=== PATIENT | female | born 1950 | race Caucasian/White ===

== ENCOUNTER 2019-09-13 15:47 | Outpatient (CLI) | payer MEDICARE, SELFPAY ==
--- NOTE | ~2019-09-13 | XR_ITS ---
XR foot LT 2V 09/13/2019 16:45 Indication: Left foot pain Procedure: 2 views left foot Comparison: No prior studies for comparison. Findings: No fracture or traumatic malalignment. Mild osteoarthritis of the first MTP joint. Small de generative calcaneal enthesophyte. Impression: 1: Mild osteoarthritis of the first MTP joint. Reviewed, dictated and finalized at location A. Impression: 1: Mild osteoarthritis of the first MTP joint.
--- NOTE | ~2019-09-13 | XR_ITS ---
XR hand LT 2V 09/13/2019 16:46 Indication: Left hand pain Procedure: 3 views left hand Comparison: No prior studies for comparison. Findings: There is moderate polyarticular osteoarthritis. Osteopenia. No fracture, subluxation or dis location. No erosive changes. No focal soft tissue abnormalities. Impression: 1: Moderate polyarticular osteoarthritis of the left hand. Reviewed, dictated and finalized at location A. Impression: 1: Moderate polyarticular osteoarthritis of the left hand.
[2019-09-13 17:19] LABS: Alanine Aminotransferase 27 U/L (14-59); Albumin Level 3.7 g/dL (3.4-5.0); Alkaline Phosphatase 90 U/L (46-116); Anion Gap 10.4 mmol/L (7-16); Aspartate Amino Transferase 17 U/L (15-37); Bilirubin,Total 0.2 mg/dL (0.00-1.00); Blood Urea Nitrogen 18 mg/dL (7-18); Carbon Dioxide 31 mmol/L (21-32); Chloride 105 mmol/L (98-108); Cholesterol 189 mg/dL (0-200); Estimated Glomerular Filt Rate > 60; Free T4 Free Thyroxine 1.39 ng/dL (0.76-1.46); Glucose 102 mg/dL (70-99); HDL Direct 46 mg/dL (40-60); LDL Cholesterol Calculated 107 mg/dL (<130); Osmolality Calculated 295 mOsm/kg (285-295); Potassium 4.4 mmol/L (3.5-5.1); Sodium 142 mmol/L (136-145); Total Protein 7.2 g/dL (6.4-8.2); Triglycerides 178 mg/dL (0-150)
== END 2019-09-13 15:48 | disposition home or self-care (01) ==
PROVIDERS: PCP Nurse Practitioner Family; Visit Provider Nurse Practitioner Family
DX: E03.9 Hypothyroidism, unspecified (principal); M79.672 Pain in left foot; M79.642 Pain in left hand; Z00.00 Encounter for general adult medical examination without abnormal findings
CPT/HCPCS: 36415; 73120; 73620; 80053; 80061; 84439; 84443

== ENCOUNTER 2019-10-01 14:44 | Outpatient (CLI) | payer MEDICARE, SELFPAY ==
[2019-10-02 00:47] LABS: SARS-CoV-2 RNA PCR Positive
== END 2019-10-01 14:45 | disposition home or self-care (01) ==
LOC: CHSLAB 14:46
PROVIDERS: PCP Family Medicine; Visit Provider Family Medicine
DX: U07.1 COVID-19 (principal); J02.9 Acute pharyngitis, unspecified; R05 Cough; R52 Pain, unspecified; R68.89 Other general symptoms and signs
CPT/HCPCS: 87635; C9803; U0003

== ENCOUNTER 2019-10-09 01:53 | Inpatient (IN) | payer MEDICARE, SELFPAY ==
[2019-10-09] VITALS (10 sets, daily range): BP systolic 122–148; BP diastolic 60–86; PULSE 66–92; RESP 18–22; TEMP 36.4–37.4; O2SAT 91–97; BMI 30.8
--- NOTE | ~2019-10-09 | CT_ITS ---
EXAMINATION: CTA chest PE protocol EXAM DATE: 10/09/2019 13:10 INDICATION: COVID 19 positive. Elevated d-dimer. TECHNIQUE: Spiral CTA of the chest (pulmonary arteries) was performed with 15 (2 3 6, 630 cc Omnipaque 350 intravenous contrast injection. Images were acquired during the pulmonary a rterial phase. Coronal maximum intensity projection 3D-reconstructions were created by the technolog ist on dedicated workstation. Axial, coronal and sagittal reformatted images were reviewed. The dos e-length product (DLP) for this examination was 285.50 mGy-cm. The exposure was tailored according t o patient size (auto mA exposure control), and iterative reconstruction (ASIR) was used as additiona l dose reduction technique. There is no prior study for comparison. FINDINGS: Pulmonary arteries are well opacified and without intraluminal filling defects. No thora cic aortic dissection. Bilateral patchy extensive peripheral predominant groundglass opacities Appea satnam is typical of COVID 19-induced acute lung injury. Less likely acute possibilities include infl uenza, pulmonary edema or hemorrhage. Some chronic processes that can have this appearance include cr yptogenic organizing pneumonia, desquamative interstitial pneumonia, nonspecific interstitial pneumon ia, drug toxicity, connective tissue disease. Please clinically correlate and test as appropriate. There are no pleural or pericardial effusions. Tracheobronchial tree is patent. There is no media stinal, hilar or axillary lymphadenopathy. There is no pneumothorax. Borderline cardiomegaly. No evidence of coronary arterial calcification. There is small sliding gastroesophageal hiatal hernia. There are cholecystectomy clips. There is thoracic spondylosis without osteoblastic or osteolytic l esions identified. IMPRESSION: 1. No pulmonary emboli. 2. Extensive bilateral acute airspace disease consistent with COVID-19 induced acute lung injury. Reviewed, dictated and finalized at location A.
--- NOTE | ~2019-10-09 | XR_ITS ---
EXAMINATION: XR chest 1V portable EXAM DATE: 10/09/2019 02:53 INDICATION: Shortness of breath, cough. COVID 19. TECHNIQUE: Portable AP frontal chest x-ray was obtained. There is no prior study for comparison. FINDINGS: There is moderate amount of ill-defined bilateral acute airspace disease, likely acute lung injury from viral infection. No pneumothorax or pleural effusion. Cardiomediastinal silhouette is no rmal. Left humeral enchondroma. There are cholecystectomy clips. IMPRESSION: Moderate amount of acute bilateral airspace disease, likely ALI. Reviewed, dictated and finalized at location A.
--- NOTE | 2019-10-09 02:03 | ECG_ITS ---
Measurements Intervals [place] Rate: 91 P: 36 DE: 160 QRS: 30 QRSD: 102 T: 16 QT: 366 QTc: 452 Interpretive Statements SINUS RHYTHM POSSIBLE LEFT ATRIAL ENLARGEMENT POSSIBLE LEFT VENTRICULAR HYPERTROPHY DELAYED PRECORDIAL R/S TRANSITION BORDERLINE ST-T WAVE ABNORMALITY- INF/HIGH LAT LEADS BASELINE ARTIFACT- V6 Electronically Signed On 10-09-2019 6:52:58 CDT by Daquan Landeros D.O.
--- NOTE | 2019-10-09 02:09 | ED.SOB ---
HPI - SOB/Dyspnea General Chief Complaint: Shortness of Breath/Dyspnea Stated Complaint: sob Time Seen by Provider: 10/09/19 01:55 Source: patient and family Mode of arrival: wheelchair Limitations: no limitations History of Present Illness HPI Narrative: This patient is a 69 year old COVID + female who presents for evaluation of weakness and shortness of breath. Patient developed symptoms of COVID 2 weeks ago. Her symptoms have been cough, fatigue, poor appetite, low grade fever and a headache. She was tested for COVID on 10/01/19 and she was positive. She presents tonight because she is developing shortness of breath and weakness. Patient's states she is barely eating or drinking. Patient denies chest pain, vomiting or abdominal . Related Data Home Medications Medication Instructions Recorded Confirmed diclofenac sodium 50 mg PO TID PRN 10/09/19 10/09/19 latanoprost 1 drp OPHTHALMIC (EYE) DAILY 10/09/19 10/09/19 levothyroxine 100 mcg PO DAILY 10/09/19 10/09/19 omeprazole 20 mg PO DAILY 10/09/19 10/09/19 Allergies Allergy/AdvReac Type Severity Reaction Status Date / Time codeine Allergy Severe Rash Verified 10/09/19 04:49 Sulfa (Sulfonamide Allergy Severe Rash Verified 10/09/19 04:49 Antibiotics) Review of Systems Review of Systems: All systems reviewed & are unremarkable except as noted in HPI and below Constitutional: Constitutional: Reports chills, Reports fever(s) and Reports weakness ENT: Comments: loss of taste Cardiovascular: Cardiovascular: Denies chest pain Respiratory: Respiratory: Reports cough and Reports dyspnea Gastrointestinal: Gastrointestinal: Denies abdominal pain, Denies diarrhea, Reports nausea and Denies vomiting Neurologic: Reports headache(s) [facility] Social History Social History Smoking status: Never smoker Alcohol intake: never Substance use: never Spiritual care concerns: No Exam Const: General: no acute distress, alert and ill appearing Orientation/consciousness: patient oriented x3 HENMT: Head: normocephalic and atraumatic Ears: TM's normal bilaterally Face and sinus: face symmetric Mouth: Yes lip normal, Yes oropharynx normal and Yes moist mucous membranes Eyes: Pupils: Equal, round and reactive pupils present EOM: EOMs intact bilaterally Chest: Chest palpation & inspection: normal inspection of the chest Resp: Effort & Inspection: normal respiratory effort Auscultation: crackles diffuse Cardio: Rate: regular rate Rhythm: regular rhythm Heart sounds: no murmurs GI: GI Palp: Yes Soft to palpation, No Tenderness to palpation present (GI), No Guarding due to palpation present (GI) and No Rigid due to palpation Skin: General skin exam: normal color Rashes: no rashes Neuro: General: patient oriented x3 and moves all extremities Course Reevaluation(s) Reevaluation #1: I Discussed with patient and she will be admitted for COVID with bilateral pneumonia. Her oxygen saturation is 90% on room so I placed her on 2 L NC Date: 10/09/19 Time: 03:25 Consultations Consultation #1: I Discussed case with Dr. Ma who accepts patient to the medical floor. Date: 10/09/19 Time: 03:25 Vital Signs Vital signs: Vital Signs Temperature 99.4 F 10/09/19 01:56 Pulse Rate 92 10/09/19 01:56 Respiratory Rate 22 H 10/09/19 01:56 Blood Pressure 138/64 10/09/19 01:56 Pulse Oximetry 91 10/09/19 01:56 Temperature 98.1 F 10/09/19 04:10 Pulse Rate 71 10/09/19 04:10 Respiratory Rate 18 10/09/19 04:10 Blood Pressure 148/62 H 10/09/19 04:10 Pulse Oximetry 97 10/09/19 04:10 MDM - SOB/Dyspnea Lab Data Attestation: I reviewed the patient's lab results. Result diagrams: 10/09/19 02:16 10/09/19 02:16 Labs: Lab Results 10/09/19 10/09/19 10/09/19 Range/Units 02:16 02:16 02:16 WBC 8.0 (4.5-10.0) K/mm3 RBC 4.63 (4
[2019-10-09 02:32] LABS: Base Excess ABG -1.2 mEq/l (+/-2.0); Fractional Inspired Oxygen 21 %; HCO3 ABG 22.8 mEq/l (22.0-26.0); Methemoglobin ABG 0.3 %THb (0-1.5); Oxygen Content ABG 15.5 %vol (16.0-22.0); Oxygen Saturation ABG 90.8 % (95.0-100.0); Oxyhemoglobin 87.6 % THb (90.0-100.0); PCO2 ABG 35.8 mmHg (35.0-45.0); PO2 ABG 57.9 mmHg (80.0-100.0); PO2 FiO2 Ratio Arterial Blood 2.76 %; Reduced Hemoglobin 11.1 %THb (0-5.0); Total Hemoglobin 12.6 g/dL (12.0-18.0); pH ABG 7.421 (7.350-7.450)
[2019-10-09 02:33] LABS: Device ROOM AIR; Modified Allen's Test Pass; Site Drawn LEFT RADIAL
[2019-10-09 02:39] LABS: Basophils Percent Auto 0.1 % (0.2-1.2); Eosinophils Percent Auto 0.2 % (0-4.4); Hematocrit 38.2 % (37.0-47.0); Hemoglobin 12.2 g/dL (12.0-15.0); Immature Granulocyte Absolute 0.06 K/mm3 (0.00-0.031); Immature Granulocyte Percent A 0.7 % (0-0.5); Lymphocytes Absolute Auto 1.17 K/mm3 (0.9-3.2); Lymphocytes Percent Auto 14.6 % (18.3-44.2); Mean Corpuscular HGB Conc 31.9 g/dl (32-36); Mean Corpuscular Hemoglobin 26.3 pg (26-34); Mean Corpuscular Volume 82.5 fl (80-100); Mean Platelet Volume 10.4 fl (7.4-10.4); Monocytes Absolute Auto 0.5 K/mm3 (0.1-0.6); Monocytes Percent Auto 5.7 % (2.6-8.5); Neutrophils Absolute Auto 6.3 K/mm3 (1.3-6.7); Neutrophils Percent Auto 78.7 % (45.5-73.1); Platelet Count Result 325 k/mm3 (150-375); Red Blood Count 4.63 M/mm3 (4.2-5.4); Red Cell Distribution Width 14.1 % (11.5-14.5)
[2019-10-09 02:43] LABS: INR 1.1; Prothrombin Time 13.8 Seconds (11.1-14.7)
[2019-10-09 02:44] LABS: Partial Thromboplastin Time 28.4 SECONDS (22.3-36.8)
[2019-10-09 02:46] LABS: D Dimer 0.92 ug/mL (<0.48)
[2019-10-09 02:46] LABS: Lactate Dehydrogenase 842 U/L (313-618)
[2019-10-09 02:47] LABS: Lactic Acid Reflex 0.7 mmol/L (0.7-2.1)
[2019-10-09 02:50] LABS: Alanine Aminotransferase 27 U/L (4-35); Albumin Level 3.9 g/dL (3.5-5.1); Alkaline Phosphatase 92 U/L (38-126); Anion Gap 14.3 mmol/L (7-16); Aspartate Amino Transferase 30 U/L (14-36); Bilirubin,Total 0.4 mg/dL (0.2-1.3); Blood Urea Nitrogen 20 mg/dL (7-17); Calcium 8.9 mg/dL (8.4-10.2); Carbon Dioxide 24 mmol/L (22-30); Chloride 103 mmol/L (98-107); Estimated Glomerular Filt Rate > 60; Glucose 97 mg/dL (65-105); Potassium 3.3 mmol/L (3.4-5.0); Sodium 138 mmol/L (137-145)
[2019-10-09 02:56] LABS: NT Pro B Type Natriuretic Pept 85 PG/ML (5-100)
[2019-10-09] MEDS: LACTATED RINGERS 1,000 ML 999 ML IV CONT (02:59)
--- NOTE | 2019-10-09 04:10 | ADMGEN ---
This patient, Lisa Navarro, was admitted to [facility] Surg Room 333-01. Patient/family oriented to hospital policies and general routines including ID bracelet, bed and alarms, visiting hours, pain management, procedures, bathroom and other care routines, personal items, smoking policy, room service/diet, and visiting hours. Valuables list has been completed. Information on how to activate the Rapid Response Team has been discussed. Patient/Family are encouraged to report perceived risks to care and to ask questions if they do not understand what they are told or what they should do.
[2019-10-09] MEDS: LACTATED RINGERS 1,000 ML 125 ML IV CONT (04:17)
[2019-10-09] MEDS: PANTOPRAZOLE 40 MG TABLET PO (09:04)
[2019-10-09] MEDS: POTASSIUM CHLORIDE 20 MEQ TABLET 40 MEQ PO (09:04)
[2019-10-09] MEDS: LEVOTHYROXINE SODIUM 100 MCG TABLET PO (11:07)
--- NOTE | 2019-10-09 11:56 | PM.IMHP ---
H&P: HPI History of Present Illness Date/Time: 10/09/19 11:45 Chief complaint: Shortness of breath Narrative: Date of Service 10/09/2019 1145 The supervising physician for this history and physical is Dr Ron Crabtree. Ms. Navarro is a 69yo F with history of hypothyroidism, IBS, and arthritis who presented to the ED for evaluation of shortness of breath. She states her symptoms began 2 weeks ago 09/25/19 with sore throat, cough, and fevers. She saw her PCP Dr English 10/01/19 for these symptoms and tested positive for COVID-19 09/30. She is noted to have issues with chronic sinusitis/ear pain and was prescribed azithromycin at that visit. She presented to the ED last night for evaluation of worsening shortness of breath with walking. CXR demonstrates bilateral pneumonia. She was noted to be saturating 90% on room air in the ED and was placed on 2L supplemental O2. Routine labs are grossly normal aside from mild hyponatremia and elevated D dimer. She denies any chest pain, palpitations or calf tenderness. She reports she has shortness of breath with ambulating which makes her feel unsteady, but denies SOB at rest. She notes 4 episodes of diarrhea yesterday and a couple BMs so far today. She describes this is not abnormal for her given her history of IBS and she sometimes alternates between episodes of constipation and diarrhea. She denies any abdominal pain, nausea, or vomiting. Denies hematochezia or melena. She reports some intermittent headaches but denies nasal congestion or ear pain. She mostly feels tired and did not sleep overnight. She is admitted to our hospitalist service to monitor hypoxia in the setting of pneumonia secondary to COVID-19. Review of Systems Review of Systems: Narrative: Shortness of breath with ambulation, denies SOB at rest. No chest pain or calf tenderness. Diarrhea in the last few days which she reports not totally abnormal for her given her IBS. Denies hematochezia, melena, nausea, vomiting, or abdominal pain. Intermittent headaches. Denies dysuria or hematuria. Twelve systems were reviewed with pertinent positives and negatives as per HPI. Except as documented, all other systems were reviewed and are negative. [facility] Past Medical History Medical History GERD (gastroesophageal reflux disease) Hypothyroidism IBS (irritable bowel syndrome) Osteopenia Overweight Surgical History Surgical History Hx of cholecystectomy 2000 Hx of hysterectomy 1993 Family History Family History Father Hypertension Social History Social History (Updated 10/09/19 @ 12:16 by Lawanda Thomas PA-C) Social History: Ms. 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 She denies alcohol, tobacco, or other substance use. Her PCP is Dr English. She designates her surrogate decision maker to be her daughter, Sangita, and she is full-code status. Smoking status: Never smoker Alcohol intake: never Substance use: never Living arrangements: with family Occupation/Education: retired Gender identity (if verbalized by the patient): Female Spiritual care concerns: No Meds Home Medications and Allergies Home Medications Medication Instructions Recorded Confirmed Type dicyclomine 20 mg tablet 20 mg PO TID PRN #30 tablet 09/13/19 10/09/19 Rx ondansetron HCl 4 mg tablet 4 mg PO Q8H PRN #10 tablet 10/04/19 10/09/19 Rx azithromycin 250 mg tablet See Rx Instructions PO .COMPLEX #6 10/06/19 10/09/19 Rx tablet diclofenac sodium 50 mg PO TID PRN 10/09/19 10/09/19 History latanoprost 1 drp OPHTHALMIC (EYE) DAILY 10/09/19 10/09/19 History levothyroxine 100 mcg PO DAILY 10/09/19 10/09/19 History omeprazole 20 mg PO DAILY 10/09/19 10/09/19 History Allergies Allergy/AdvReac
[2019-10-09] MEDS: ONDANSETRON INJ 4 MG/2 ML VIAL IV PUSH (15:49)
[2019-10-09] MEDS: LATANOPROST 0.005% OP SOLN 2.5 ML BTL 1 DROP EACH EYE (22:32)
[2019-10-10] VITALS (8 sets, daily range): BP systolic 125–129; BP diastolic 52–58; PULSE 70–93; RESP 18–24; TEMP 36.6–37.2; O2SAT 85–93
[2019-10-10] MEDS: LEVOTHYROXINE SODIUM 100 MCG TABLET PO (06:34)
[2019-10-10 06:39] LABS: Basophils Percent Auto 0.3 % (0.2-1.2); Eosinophils Absolute Auto 0.1 K/mm3 (0-0.3); Eosinophils Percent Auto 1.1 % (0-4.4); Hemoglobin 10.9 g/dL (12.0-15.0); Immature Granulocyte Absolute 0.08 K/mm3 (0.00-0.031); Immature Granulocyte Percent A 1.3 % (0-0.5); Lymphocytes Absolute Auto 0.98 K/mm3 (0.9-3.2); Lymphocytes Percent Auto 15.9 % (18.3-44.2); Mean Corpuscular HGB Conc 31.1 g/dl (32-36); Mean Corpuscular Hemoglobin 26.1 pg (26-34); Mean Corpuscular Volume 83.7 fl (80-100); Mean Platelet Volume 9.8 fl (7.4-10.4); Monocytes Absolute Auto 0.5 K/mm3 (0.1-0.6); Monocytes Percent Auto 8.1 % (2.6-8.5); Neutrophils Absolute Auto 4.5 K/mm3 (1.3-6.7); Neutrophils Percent Auto 73.3 % (45.5-73.1); Platelet Count Result 284 k/mm3 (150-375); Red Blood Count 4.18 M/mm3 (4.2-5.4); Red Cell Distribution Width 14.1 % (11.5-14.5); White Blood Count 6.2 K/mm3 (4.5-10.0)
[2019-10-10 06:59] LABS: Anion Gap 9.4 mmol/L (7-16); Blood Urea Nitrogen 11 mg/dL (7-17); CRP 8.5 mg/dL (<1.0); Calcium 8.4 mg/dL (8.4-10.2); Carbon Dioxide 28 mmol/L (22-30); Chloride 104 mmol/L (98-107); Estimated CRCL calculation 65 ml/min; Estimated Glomerular Filt Rate > 60; Glucose 105 mg/dL (65-105); Lactate Dehydrogenase 756 U/L (313-618); Magnesium 1.9 mg/dL (1.6-2.3); Potassium 3.4 mmol/L (3.4-5.0); Sodium 138 mmol/L (137-145)
[2019-10-10] MEDS: ACETAMINOPHEN 500 MG TABLET 1000 MG PO (08:36)
[2019-10-10] MEDS: ENOXAPARIN 40 MG/0.4 ML SYRINGE SUB-Q (08:37)
[2019-10-10] MEDS: PANTOPRAZOLE 40 MG TABLET PO (08:37)
[2019-10-10] MEDS: POTASSIUM CHLORIDE 20 MEQ TABLET PO (10:02)
--- NOTE | 2019-10-10 10:47 | PCRCNOTE ---
SPOKE WITH SAL AT [facility]. PT. IS COVID POSTIVE AND HAS MEDICARE, I ABLE TO SPEED PROCESS THROUGH AND DID NOT NEED HOME O2 EVALUATION, JUST ORDER FROM PROVIDER. SPOKE WITH PATIENT AND AND EXPLAINED TO CALL [facility] UPON DISCHARGE TO SET O2 UP AT HOME. DID GIVE PT. PORTABLE TANK FROM DME CLOSET.
--- NOTE | 2019-10-10 12:15 | PM.DS ---
DS: Admitting Diagnosis Admitting Diagnosis Admitting Diagnosis: COVID-19 DS: Discharge Diagnosis Discharge Diagnosis (1) Pneumonia due to 2019 novel coronavirus: Code(s): U07.1 - COVID-19; J12.89 - Other viral pneumonia Status: Acute Assessment and Plan: Date of Service 10/10/19 Ms. Navarro is a 69yo F with history of hypothyroidism, IBS, and arthritis who presented to the ED for evaluation of shortness of breath. She states her symptoms began 2 weeks ago 09/25/19 with sore throat, cough, and fevers. She saw her PCP Dr English 10/01/19 for these symptoms and tested positive for COVID-19 09/30. She is noted to have issues with chronic sinusitis/ear pain and was prescribed azithromycin at that visit. She presented to the ED for evaluation of worsening shortness of breath with walking. CXR demonstrates bilateral pneumonia. She was noted to be saturating 90% on room air in the ED and was placed on 2L supplemental O2. Treatement with dexamethasone or remdesivir were not initiated due to the duration of her symptoms (>10 days). She was treated with supportive care to include antiemetics and tylenol, albuterol, incentive spirometery, and continuous pulse ox monitoring. D dimer mildly elevated. CTA chest demonstrated extensive bilateral acute lung injury without evidence of PE. She was afebrile and vitals other than oxygenation were stable. She was hemodynamically stable for discharge 10/10/19 with 3L/min nasal cannula home O2 set up. We discussed purchasing a pulse oximeter (daughter was out buying one for her day of discharge) and monitoring saturations closely at home. She was given specific instructions on when to call Dr English's office and/or return to ED if needed. She was advised that the duration of her symptoms may last even another few weeks. She was educated on isolation/quarantine recommendations. Instructed her to call Dr English's office tomorrow for a follow up appointment. Discussed plan of care over the phone with patient's daughterSangita. Symptoms began 09/25/19; patient tested positive for COVID-19 outpatient 10/01/19; presents with worsening shortness of breath with walking and overall malaise. Continue supportive care with PRN albuterol for shortness of breath, antipyretics for fevers, incentive spirometry, and supplemental O2. Symptom onset out of time window for treatment with dexamethasone or remdesivir. Afebrile. Continue supplemental O2 and wean O2 as tolerated to keep O2 saturations > 90%. CTA chest shows extensive bilateral airspace disease, no PE. (2) Hypoxia: Code(s): R09.02 - Hypoxemia Status: Acute Assessment and Plan: Secondary to above. Discharged with 3L/min O2 - advised to purchase a pulse oximeter and monitor at home, follow up with PCP. (3) Hypokalemia: Code(s): E87.6 - Hypokalemia Status: Acute Assessment and Plan: Mild, replaced. (4) Hypothyroidism: Qualifiers: Hypothyroidism type: unspecified Qualified Code(s): E03.9 - Hypothyroidism, unspecified Code(s): E03.9 - Hypothyroidism, unspecified Status: Chronic Assessment and Plan: Continue home levothyroxine. (5) IBS (irritable bowel syndrome): Qualifiers: Irritable bowel syndrome type: with diarrhea Qualified Code(s): K58.0 - Irritable bowel syndrome with diarrhea Code(s): K58.9 - Irritable bowel syndrome without diarrhea Status: Chronic Assessment and Plan: Patient had diarrhea yesterday and today. Reports this is not abnormal for her given her IBS, may be exacerbated by viral syndrome but stool cultures sent. C diff negative. (6) GERD (gastroesophageal reflux disease): Qualifiers: Esophagitis presence: esophagitis presence not specified Qualified Code(s):
--- NOTE | 2019-10-19 11:01 | PC.NURSE ---
Blood cx negative.
== END 2019-10-10 14:38 | disposition home or self-care (01) | DRG 177 ==
LOC: ANHED 03:28 → ANH3MEDSUR 03:56
PROVIDERS: Physician Assistant; Admitting Provider Family Medicine; Emergency Provider General Practice; PCP Family Medicine; Visit Provider Internal Medicine
DX: U07.1 COVID-19 (principal); J12.89 Other viral pneumonia; R09.02 Hypoxemia; J32.9 Chronic sinusitis, unspecified; E87.6 Hypokalemia; E03.9 Hypothyroidism, unspecified; K58.0 Irritable bowel syndrome with diarrhea; K21.9 Gastro-esophageal reflux disease without esophagitis; M19.90 Unspecified osteoarthritis, unspecified site; M85.80 Other specified disorders of bone density and structure, unspecified site; R79.89 Other specified abnormal findings of blood chemistry; Z79.899 Other long term (current) drug therapy; Z88.2 Allergy status to sulfonamides; Z88.5 Allergy status to narcotic agent
CPT/HCPCS: 36415; 36600; 71045; 71275; 80048; 80053; 82375; 82728; 82805; 83050; 83605; 83615; 83735; 83880; 85025; 85380; 85610; 85730; 86140; 87015; 87040; 87045; 87046; 87269; 87272; 87324; 87427; 89055; 93005; 96360; 99285; A9270; J0131; J1650; J2405; J7120; Q9967

== ENCOUNTER 2019-11-10 14:54 | Outpatient (CLI) | payer MEDICARE, SELFPAY ==
--- NOTE | ~2019-11-10 | XR_ITS ---
XR chest 2V DATE: 11/10/2019 15:11 INDICATION: Shortness of breath with exertion. Covid pneumonia 6 weeks ago. TECHNIQUE: 2 views COMPARISON: 10/09/2019 portable AP chest 10/09/2019 CT pulmonary scan FINDINGS: Normal heart size. No hilar or mediastinal enlargement. The lungs are clear of infiltrate o r consolidation. There is interval resolution of extensive bilateral pulmonary infiltrates since 2019. Surgical clips, right upper quadrant, consistent with cholecystectomy. 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 Osteopenia. IMPRESSION: No active cardiopulmonary disease Status post cholecystectomy Reviewed, dictated and finalized at location A.
== END 2019-11-10 14:55 | disposition home or self-care (01) ==
LOC: CHSIMG 14:57
PROVIDERS: PCP Family Medicine; Visit Provider Family Medicine
DX: U07.1 COVID-19 (principal); J12.89 Other viral pneumonia
CPT/HCPCS: 71046

== ENCOUNTER 2020-01-19 12:35 | Outpatient (CLI) | payer MEDICARE, SELFPAY ==
--- NOTE | ~2020-01-19 | CT_ITS ---
EXAMINATION:CT chest wo con DATE: 01/19/2020 15:01 INDICATION: Shortness of breath. Pneumonia. TECHNIQUE: Computed tomography (CT) of the chest was performed without intravenous contrast. Automate d exposure control and iterative reconstruction technique were employed. The dose-length product (DLP ) was 146.02 mGy-cm. COMPARISON: Chest CT 10/09/2019 FINDINGS: There are widespread mild peripheral reticular opacities in the lungs with a lower lung pre dominance. No bronchiectasis or honeycombing. There is a 4 mm nodule in right upper lobe, likely glory gn. No pleural effusion. The heart size is normal. No pericardial effusion. There are changes of chol ecystectomy. There is mild thoracic spondylosis. IMPRESSION: 1. Mild chronic interstitial lung disease in a pattern of nonspecific interstitial pneumonia (NSIP), which may be secondary to recent COVID-19 pneumonia. Reviewed, dictated and finalized at location B. X [employer]AY CONSULTANT IMPRESSION: 1. Mild chronic interstitial lung disease in a pattern of nonspecific interstit ial pneumonia (NSIP), which may be secondary to recent COVID-19 pneumonia.
--- NOTE | 2020-01-19 12:48 | ECHO_ITS ---
Patient Info Name: Lisa Navarro Age: 69 years : 1950 Gender: Female Ht: 63 in Wt: 175 lbs BSA: 1.91 m2 HR: 78 bpm BP: 131 / 79 mmHg Technical Quality: Good Exam Date: 01/19/2020 1:06 PM Exam Location: [facility] Pulmonary Patient Status: Outpatient Admit Date: 01/19/2020 Staff Ordering Physician: Terri Chacon MD Gis Coordinator: Corrina Castillo RDCS Attending Provider: Terri Chacon MD Referring Physician: Ines MAR; Exam Type: CA echo doppler color flow Study Info Indications - velasco Complete two-dimensional, color flow and Doppler transthoracic echocardiogram is performed. Summary 1. Complete two-dimensional, color flow and Doppler transthoracic echocardiogram is performed. 2. Left ventricular chamber dimension is normal. 3. Left ventricular systolic function is normal, estimated at 60-65%. 4. There is mildly increased left ventricular wall thickness. 5. The left ventricular diastolic function is grade I diastolic dysfunction. 6. E/e' 10 is mildly elevated. Left Ventricle E/e' 10 is mildly elevated. Left ventricular chamber dimension is normal. Left ventricular systolic function is normal, estimated at 60-65%. There is mildly increased left ventricular wall thickness. The left ventricular diastolic function is grade I diastolic dysfunction. Right Ventricle Right ventricular systolic function is normal and with normal TAPSE 2.2 cm. Right ventricular chamber dimension is normal. Left Atria Left atrial chamber dimension is normal. Right Atria Right atrial chamber dimension is normal. Aortic Valve The aortic valve is trileaflet. There is no aortic valve stenosis. There is no aortic valve regurgitation. Pulmonic Valve There is no pulmonic regurgitation. Mitral Valve There is no mitral valve stenosis. There is no mitral valve regurgitation. Tricuspid Valve There is no tricuspid valve regurgitation. Pericardium/Pleural There is no pericardial effusion. Inferior Vena Cava Normal inferior vena cava with >50% collapse upon inspiration consistent with normal right atrial pressure, 5 mmHg. Aorta The aortic root size at the sinus of Valsalva is normal. Left Ventricular Outflow Tract Name Value Normal LVOT 2D LVOT Diameter 2.0 cm LVOT Doppler LVOT Peak Gradient 4 mmHg LVOT Mean Gradient 2 mmHg LVOT VTI 19 cm LVOT VTI/AV VTI Ratio 0.8 LVOT Stroke Volume 64 ml LVOT CO 4.9 l/min LVOT CI 2.6 l/min/m2 Mitral Valve Name Value Normal MV Doppler MV Decel [place] 389 cm/s2 MV PHT 52 ms MV Area (PHT)
--- NOTE | 2020-01-22 11:26 | WPDPFTINT ---
PFT Interpretation PFT Interpretation: This PFT met all criteria for ATS standards and reproducibility FEV/FVC post bronchodilator 84% FEV1 97% or 1.90 liters FVC 83% or 2.27 liters TLC 80% or 3.70 liters RV 74% RV/TLC 37% DLCO 63% when adjusted for alveolar volume but not adjusted for hemoglobin Flow volume loops was normal Impression: Borderline restriction with mildly reduced diffusion capacity. This pattern is suggestive of interstitial lung disease. Clinical correlation is advised.
--- NOTE | 2020-01-22 11:28 | WPDSIXMINUTE ---
Six Minute Walk Six Minute Walk: The patients O2 sats started at 93% and dropped as low as 91% Total walk distance 335.28 meters conclusion: Although there was slight drop in oxygen during exertion, this patient does not qualify for home oxygen therapy
== END 2020-01-19 12:36 | disposition home or self-care (01) ==
LOC: ANHCARD 12:36
PROVIDERS: PCP Family Medicine; Visit Provider Internal Medicine Critical Care Medicine
DX: R06.00 Dyspnea, unspecified (principal); J12.89 Other viral pneumonia; U07.1 COVID-19; R91.8 Other nonspecific abnormal finding of lung field
CPT/HCPCS: 71250; 93306; 94060; 94618; 94726; 94729

== ENCOUNTER 2021-01-01 12:32 | Outpatient (CLI) | payer MEDICARE, SELFPAY ==
--- NOTE | 2021-01-01 14:51 | P.PCNPFT_ITS ---
PFT Procedure Performed PFT Procedure Performed Spirometry with Pre/Post Bronchodilator Plethysmography (Lung Vol) Diffusing Cap (DLCO) Flow Vol Loop PFT Interpretation This is a pulmonary function test with pre and post-bronchodilator spirometry, plethysmography and diffusing capacity. The test was performed and results interpreted in accordance with the 2019 and 2005 ATS/ERS Task Force guidelines respectively using the Global Lung Function Initiative-2012 reference equations. Patient demonstrated good effort and cooperation. Reproducibility criteria were met. The quality of the pre bronchodilator spirometry maneuver was Grade A and post bronchodilator spirometry maneuver was Grade A. Findings: Spirometry:The contour the inspiratory and expiratory flow tracing are normal. The pre bronchodilator FVC is 2.57 L, 93% predicted. The pre bronchodilator FEV1 is 2.10 L, 99% predicted. The FEV1: FVC ratio was 82%. The post bronchodilator FVC is 2.62 L, representing a 2% increase. The post bronchodilator FEV1 is 2.19 L, representing a 4% increase. Plethysmography: The total lung capacity is 3.82 L, 78% predicted. The functional residual capacity is 1.54 L, 55% predicted. The residual volume is 1.25 L, 59% predicted. Diffusing capacity: The absolute diffusion capacity is 15.2, 76% predicted. The diffusing capacity corrected for alveolar volume is 4.00, 92% predicted. In comparison to previous pulmonary function test on 01/19/2020 the post broncho dilator FVC has increased from 2.27 L to 2.62 L. The post bronchodilator FEV1 has increased from 1.90 L to 2.19 L. the total lung capacity is unchanged from 3.70 L to 3.82 L. The functional residual capacity is unchanged from 1.65 L to 1.54 L. The residual volume is unchanged from 1.35 L to 1.25 L. The absolute diffusion capacity is increased from 13.1 to 15.2. The diffusing capacity corrected for alveolar volume is unchanged from 4.01 to 4.00 Impression: The spirometry is normal without evidence of an obstructive abnormality. There is no significant improvement after inhaling a single dose of albuterol. The total lung capacity is normal with a reduced functional residual capacity and residual volume. This is an abnormal but nonspecific lung volume pattern. The diffusing capacity is normal. In comparison to the prev ious pulmonary function test on 01/19/2020 there has been a greater than anticipated time dependent increase in FVC, FEV1 and absolute diffusing capacity with no change in the total lung capacity, functional residual capacity, residual volume or diffusing capacity corrected for alveolar volume. Clinical correlation is recommended.
== END 2021-01-01 12:33 | disposition home or self-care (01) ==
LOC: ANHPFT 12:35
PROVIDERS: PCP Family Medicine; Visit Provider Internal Medicine Critical Care Medicine
DX: R06.00 Dyspnea, unspecified (principal)
CPT/HCPCS: 94060; 94726; 94729

== ENCOUNTER 2021-07-10 14:55 | Outpatient (CLI) | payer MEDICARE, SELFPAY ==
--- NOTE | ~2021-07-10 | XR_ITS ---
EXAMINATION: XR wrist RT 2V DATE: 07/10/2021 15:17 INDICATION: Right wrist pain. TECHNIQUE: 2 views of right wrist were obtained. COMPARISON: None. FINDINGS: Bone alignment is normal. No fracture. There is mild osteoarthritis of distal radioulnar tl int and triscaphe joint and severe osteoarthritis of first carpometacarpal joint. IMPRESSION: 1. Polyarticular osteoarthritis. Reviewed, dictated and finalized at location B.
--- NOTE | ~2021-07-10 | XR_ITS ---
EXAMINATION: XR wrist LT 2V DATE: 07/10/2021 15:17 INDICATION: Left wrist pain. TECHNIQUE: 2 views of left wrist were obtained. COMPARISON: Left hand radiographs 09/13/2019 FINDINGS: Bone alignment is normal. No fracture. There is moderate osteoarthritis of triscaphe joint and severe osteoarthritis of first carpometacarpal joint. IMPRESSION: 1. Polyarticular osteoarthritis. Reviewed, dictated and finalized at location B.
== END 2021-07-10 14:56 | disposition home or self-care (01) ==
PROVIDERS: PCP Nurse Practitioner Family; Visit Provider Nurse Practitioner Family
DX: M25.531 Pain in right wrist (principal); M25.532 Pain in left wrist; M15.9 Polyosteoarthritis, unspecified
CPT/HCPCS: 73100

== ENCOUNTER 2021-07-12 13:03 | Outpatient (CLI) | payer MEDICARE, SELFPAY ==
--- NOTE | ~2021-07-12 | MM_ITS ---
EXAMINATION: MM screening arminda BI w ayden HISTORY: Screening mammogram TECHNIQUE: Craniocaudal and mediolateral oblique 3-D tomosynthesis images were obtained and synthetic 2-D images were generated. CAD analysis was submitted and interpreted. COMPARISON: No prior mammogram is available for comparison at this institution. BREAST PARENCHYMAL COMPOSITION: There are scattered areas of fibroglandular density. FINDINGS: There is no evidence of suspicious mass, calcification, or architectural distortion to sugg est malignancy in either breast. There has been no suspicious interval change. IMPRESSION: 1. No mammographic evidence of malignancy. 2. Recommend routine screening mammography in one year. BI-RADS Category 1: Negative Reviewed, dictated and finalized at location A.
[2021-07-12 13:20] LABS: Add Urine Microscopic? NO; Appearance Urine Clear (Clear); Bilirubin Urine Negative (Negative); Blood Urine Negative (Negative); Color Urine Yellow (Yellow); Glucose Urine UA Negative (Negative); Ketones Urine Negative (Negative); Leukocyte Esterase Ur Negative LEU/UL (Negative); Nitrate Urine Negative (Negative); Protein Urine Negative (Negative); Urobilinogen Urine 0.2 mg/dL (0.2-1.0); pH Urine 5.5 (5.0-8.0)
== END 2021-07-12 13:04 | disposition home or self-care (01) ==
LOC: CHSIMG 13:06
PROVIDERS: PCP Nurse Practitioner Family; Visit Provider Nurse Practitioner Family
DX: Z12.31 Encounter for screening mammogram for malignant neoplasm of breast (principal); M54.9 Dorsalgia, unspecified
CPT/HCPCS: 77063; 77067; 81003

== ENCOUNTER 2023-01-15 12:42 | Outpatient (CLI) | payer MEDICARE, SELFPAY ==
--- NOTE | ~2023-01-15 | DEXA_ITS ---
Bone Density Report Name: JAM KLEIN Age: 72 Sex: Female Ethnicity: White Date of : 1950 Indication: postmenopausal; screening for osteoporosis; height loss; inflammatory bowel disease; hysterectomy; Referring Provider: Chichi Deleon Study: Bone densitometry was performed. Exam Date: January 15, 2023 Accession number: [id number] Bone Density: Region BMD T-score Z-score Classification AP Spine(L1-L4) 0.953 -0.9 1.4 Normal Femoral Neck (Left) 0.625 -2.0 -0.1 Osteopenia Total Hip (Left) 0.779 -1.3 0.3 Osteopenia Femoral Neck (Right) 0.679 -1.5 0.4 Osteopenia Total Hip (Right) 0.784 -1.3 0.3 Osteopenia Femoral Neck Mean 0.652 -1.8 0.2 Osteopenia Total Hip Mean 0.781 -1.3 0.3 Osteopenia World Health Organization criteria for BMD impression classify patients as: Normal (T-score at or above -1.0), Osteopenia (T-score between -1.0 and -2.5), or Osteoporosis (T-score at or below -2.5). 10-year Fracture Risk(1): Major Osteoporotic Fracture 12% Hip Fracture 2.4% Reported Risk Factors: [place] (), Neck BMD=0.625, BMI=32.0 (1) FRAX(R) Version 3.08. Fracture probability calculated for an untreated patient. Fracture probability may be lower if the patient has received treatment. Clinical Information Provided by Patient: Has used the following medications: Vitamin D, Calcium Has the following medical conditions: Inflammatory bowel diseases, Hysterectomy Patient maximum height was 63 Menopause Age: 45 No regular weight bearing exercise Drinks caffeinated beverages Onset of menses at age 13 Number of children 4 Impression: The patient has low bone mass, based on the Left Femoral Neck T-score. Discussion: BONE DENSITY IS LOW AT ONE OR MORE SKELETAL SITES. This patient's lowest T-score is low at one or more skeletal sites. It meets the World Health Organization's (WHO) criteria for ?low bone mass? (T-score between -1.0 and -2.5). The patient's 10-year risk of fracture as calculated by FRAX is less than the threshold where pharmacological therapy is recommended by the National Osteoporosis Foundation (NOF). However, all treatment decisions require clinical judgment and consideration of individual patient factors, including patient preferences, comorbidities, previous drug use, risk factors not captured in the FRAX model (e.g., frailty, falls, vitamin D deficiency, increased bone turnover, interval significant decline in bone density) and possible under or overestimation of fracture risk by FRAX. The patient should follow a healthful lifestyle (good nutrition with adequate calcium and vitamin D, and appropriate weight-bearing exercise). Follow-Up: Consider repeating this study in 2 to 3 years to reassess this patient's status, or sooner if there is s
--- NOTE | ~2023-01-15 | CT_ITS ---
EXAMINATION: CT abdomen wo con DATE: 01/15/2023 13:27 INDICATION: Left flank pain TECHNIQUE: Computed tomography (CT) of the abdomen was performed without intravenous contrast. The do se-length product (DLP) was 417.56 mGy-cm. Automated exposure control and iterative reconstruction te chnique were employed. COMPARISON: None FINDINGS: The lung bases are clear. The heart size is normal. There are changes of cholecystectomy. T he liver, spleen, pancreas, and adrenal glands are normal. The kidneys are unremarkable. No stones ar e identified in the kidneys. There is no hydronephrosis. There are no pathologically enlarged abdomin al lymph nodes. The appendix is normal. A moderate volume of colonic stool is present. There is mild lumbar spondylosis. IMPRESSION: 1. No CT correlate for the patient's symptoms. Reviewed, dictated and finalized at location B. E POLISHER MACHINE
--- NOTE | ~2023-01-15 | MM_ITS ---
EXAMINATION: MM screening arminda BI w ayden HISTORY: Screening TECHNIQUE: Craniocaudal and mediolateral oblique 3-D tomosynthesis images were obtained and synthetic 2-D images were generated. CAD analysis was submitted and interpreted. COMPARISON: 07/12/2021 BREAST PARENCHYMAL COMPOSITION: There are scattered areas of fibroglandular density. FINDINGS: There is a new focal asymmetry superiorly in the right breast on MLO view. The left breast is stable without evidence for malignancy. IMPRESSION: 1. Right breast asymmetry. 2. Additional mammographic views and possible breast ultrasound are recommended. BI-RADS Category 0: Incomplete: Needs additional imaging evaluation. Reviewed, dictated and finalized at location A. CLASS SPECIAL EDUCATION TEACHER IMPRESSION: 1. Right breast asymmetry. 2. Additional mammographic views and possible breast ultrasound are recommended . BI-RADS Category 0: Incomplete: Needs additional imaging evaluation.
== END 2023-01-15 12:43 | disposition home or self-care (01) ==
LOC: CHSIMG 12:43
PROVIDERS: PCP Nurse Practitioner Family; Visit Provider Nurse Practitioner Family
DX: Z12.31 Encounter for screening mammogram for malignant neoplasm of breast (principal); Z78.0 Asymptomatic menopausal state; R10.9 Unspecified abdominal pain; M54.9 Dorsalgia, unspecified; M85.89 Other specified disorders of bone density and structure, multiple sites; R92.8 Other abnormal and inconclusive findings on diagnostic imaging of breast
CPT/HCPCS: 74150; 77063; 77067; 77080

== ENCOUNTER 2023-01-27 09:36 | Outpatient (CLI) | payer MEDICARE, SELFPAY ==
--- NOTE | ~2023-01-27 | MMUS_ITS ---
EXAMINATION: MM diagnostic arminda RT w ayden, US breast RT limited HISTORY: Focal asymmetry in superior right breast on MLO screening view of 01/15/2023 TECHNIQUE: Additional 3-D tomosynthesis images of the right breast were performed and synthetic 2-D i mages were generated. CAD analysis was submitted and interpreted. High resolution upper outer quadran t right breast ultrasound was performed. COMPARISON: 01/15/2023, 07/12/2021 bilateral screening mammogram examinations FINDINGS: MAMMOGRAPHIC FINDINGS: No suspicious mass or architectural distortion, malignant calcification, skin thickening or retractio n or significant new or developing density is detected. ULTRASOUND: 10:00 7 cm from nipple: Parallel circumscribed 4.3 x 5.1 x 2.7 mm hypoechoic lesion with through gonzalez smission and posterior enhancement, no internal vascularity, likely a small cyst No suspicious mass or shadowing is detected. IMPRESSION: 1. Benign findings; no mammographic evidence of malignancy 2. Routine annual mammographic screening is recommended. BI-RADS Category 2: Benign finding(s). Reviewed, dictated and finalized at location A. NURSE IMPRESSION: 1. Benign findings; no mammographic evidence of malignancy 2. Routine annual mammographic screening is recommended. BI-RADS Category 2: Benign finding(s).
== END 2023-01-27 09:37 | disposition home or self-care (01) ==
LOC: CHSIMG 09:37
PROVIDERS: PCP Nurse Practitioner Family; Visit Provider Nurse Practitioner Family
DX: R92.8 Other abnormal and inconclusive findings on diagnostic imaging of breast (principal)
CPT/HCPCS: 76642; 77061; 77065; G0279

== ENCOUNTER 2023-08-11 13:32 | Outpatient (CLI) | payer MEDICARE, SELFPAY ==
--- NOTE | 2023-08-11 13:45 | ECG_ITS ---
[address] Test Date: 2023-08-11 Pat Name: Lisa Navarro Department: Room: Gender: F Operations Specialists: : 1950 Requested By: Chichi Ordonez Order Number: [id number] Reading MD: Altagracia Richard M.D. Measurements Intervals [place] Rate: 65 P: 26 TX: 140 QRS: 71 QRSD: 88 T: 71 QT: 410 QTc: 428 Interpretive Statements SINUS RHYTHM No previous ECG available for comparison Electronically Signed On 08-12-2023 14:11:51 CDT by Altagracia Richard M.D.
[2023-08-11 13:50] LABS: Basophils Absolute Auto 0.04 K/mm3 (0.00-0.10); Basophils Percent Auto 0.9 % (0.0-1.0); Eosinophils Absolute Auto 0.05 K/mm3 (0.02-0.50); Eosinophils Percent Auto 1.1 % (1.0-6.0); Hematocrit 41.2 % (35.0-42.0); Hemoglobin 12.6 g/dL (11.7-13.8); Immature Granulocyte Absolute 0.01 K/mm3 (0.00-0.00); Immature Granulocyte Percent A 0.2 % (0.0-0.0); Lymphocytes Absolute Auto 1.22 K/mm3 (1.10-4.50); Lymphocytes Percent Auto 26.8 % (18.0-42.0); Mean Corpuscular HGB Conc 30.6 g/dL (32-36); Mean Corpuscular Hemoglobin 26.1 pg (27.0-31.0); Mean Corpuscular Volume 85.5 fL (78.0-102.0); Mean Platelet Volume 10.6 fl (9.2-11.8); Monocytes Absolute Auto 0.43 K/mm3 (0.10-0.90); Monocytes Percent Auto 9.5 % (2.0-11.0); Neutrophils Percent Auto 61.5 % (50.0-70.0); Platelet Count Result 216 K/mm3 (150-420); Red Blood Count 4.82 M/mm3 (4.20-5.40); Red Cell Distribution Width 15.3 % (11.6-14.4); White Blood Count 4.6 K/mm3 (4.8-10.8)
[2023-08-11 16:32] LABS: Alanine Aminotransferase 27 U/L (14-59); Albumin Level 3.7 g/dL (3.4-5.0); Alkaline Phosphatase 86 U/L (46-116); Anion Gap 11 mmol/L (4-12); Aspartate Amino Transferase 19 U/L (15-37); Bilirubin,Total 0.5 mg/dL (0.00-1.00); Blood Urea Nitrogen 14 mg/dL (7-18); Calcium 8.8 mg/dL (8.5-10.1); Carbon Dioxide 27 mmol/L (21-32); Chloride 106 mmol/L (98-108); Estimated Glomerular Filt Rate > 60; Free T4 Free Thyroxine 1.12 ng/dL (0.76-1.46); Glucose 115 mg/dL (70-99); Iron 50 ug/dL (50-170); Magnesium 2.1 mg/dL (1.8-2.4); Osmolality Calculated 299 mOsm/kg (285-295); Potassium 4.2 mmol/L (3.5-5.1); Sodium 144 mmol/L (136-145); Thyroid Stimulating Hormone 0.86 uIU/mL (0.36-3.74); Total Protein 7.2 g/dL (6.4-8.2); Vitamin B12 316 pg/mL (193-986)
[2023-08-12 11:39] LABS: Vitamin D 25 Hydroxy 72 ng/mL (30-100)
[2023-08-12 12:41] LABS: Hemoglobin A1C 5.8 % (<5.7)
== END 2023-08-11 13:33 | disposition home or self-care (01) ==
PROVIDERS: PCP Nurse Practitioner Family; Visit Provider Nurse Practitioner Family
DX: E03.9 Hypothyroidism, unspecified (principal); D64.9 Anemia, unspecified; R53.83 Other fatigue; E53.8 Deficiency of other specified B group vitamins; Z79.899 Other long term (current) drug therapy; R73.01 Impaired fasting glucose
CPT/HCPCS: 36415; 80053; 82306; 82607; 83036; 83540; 83735; 84439; 84443; 85025; 93005

== ENCOUNTER 2023-09-04 07:44 | Outpatient (CLI) | payer MEDICARE, SELFPAY ==
--- NOTE | ~2023-09-04 | MR_ITS ---
Procedure: MR thoracic spine wo con Ordering provider: Cuca Natarajan APRN History: . M54.16 - Radiculopathy, lumbar region . Comparison: None. Technique: MRI thoracic spine without contrast. FINDINGS: SPINAL CORD: Normal. VERTEBRAL BODIES: Normal height and alignment. No compression fracture. Normal marrow signal. DISK SPACES: Normal. STENOSIS: None. PARASPINOUS SOFT TISSUES: Normal. IMPRESSION: No compression fracture or stenosis of the thoracic spine. Reviewed, dictated and finalized at location A.
--- NOTE | ~2023-09-04 | MR_ITS ---
EXAMINATION: MR hip LT wo con DATE: 09/04/2023 08:55 INDICATION: Lumbar radiculopathy with left hip and groin pain TECHNIQUE: Magnetic resonance imaging (MRI) of the left hip was performed without intravenous contra st. Sequences included full-field axial PD-weighted FS FSE and T1-weighted FSE, coronal of the pelvis with PD-weighted FS FSE, small field of view of the left hip with axial PD-weighted FS FSE, sagitta l PD-weighted FS FSE and coronal PD weighted FS FSE. COMPARISON: None FINDINGS: Bones/labrum/cartilage: Alignment is normal. No fracture, avascular necrosis or pathologic marrow replacing process. The lef t hip there is a normal small anterosuperior sublabral foramen with smooth margins. No evident labral tear. Mild posterior predominant partial-thickness cartilage loss without degenerative subchondral c hanges. Small marginal osteophytes along the anterosuperior to superolateral left acetabulum. The con tralateral right hip is unremarkable on the larger [id number] images. Fluid: Symmetric physiologic amount of fluid within both hip joints. Soft tissues: Normal and symmetric muscle bulk and signal in the pelvis and visualized proximal thighs. The iliopso as, gluteal and proximal hamstring tendons are normal. The uterus is not identified and has likely be en surgically resected. Limited evaluation of visceral organs of the pelvis is otherwise unremarka ble. No pathologically enlarged pelvic/inguinal lymphadenopathy. IMPRESSION: 1. Mild osteoarthritis at the left hip. Reviewed, dictated and finalized at location B.
--- NOTE | ~2023-09-04 | MR_ITS ---
Procedure: MR lumbar spine wo con Ordering provider: Cuca Natarajan APRN History: . M54.16 - Radiculopathy, lumbar region . Comparison: None. Technique: MRI lumbar spine without contrast. FINDINGS: SPINAL CORD: Normal. VERTEBRAL BODIES: Normal height and alignment. No compression fracture. Normal marrow signal. DISK SPACES: Normal. Mild diffuse disc bulge at the level of L3-L4 with mild bilateral narrowing of the foramina more on t he left side. Diffuse disc bulge at the level of L4-L5 with thickening of the ligamenta flava mild spinal canal crow nosis. No definite root compression. Diffuse disc bulge at the level of L5-S1 with bilateral narrowing of the foramina and nerve root comp ression on the left side. PARASPINOUS SOFT TISSUES: Normal. IMPRESSION: No compression fracture of the lumbar spine. Mild disc bulges at the levels of L3-L4, L4-L5 and L5-S1. Reviewed, dictated and finalized at location A.
== END 2023-09-04 07:45 | disposition home or self-care (01) ==
LOC: CHSIMG 07:48
PROVIDERS: PCP Nurse Practitioner Family; Visit Provider Nurse Practitioner Family
DX: M54.16 Radiculopathy, lumbar region (principal); R10.9 Unspecified abdominal pain; R32 Unspecified urinary incontinence; M16.12 Unilateral primary osteoarthritis, left hip; M51.36 Other intervertebral disc degeneration, lumbar region
CPT/HCPCS: 72146; 72148; 73721

== ENCOUNTER 2024-09-09 11:10 | Outpatient (CLI) | payer MEDICARE, SELFPAY ==
--- NOTE | ~2024-09-09 | MR_ITS ---
MRI of the lumbar spine Clinical History: Radiculopathy Technique: Axial T2-weighted images, and sagittal T1-weighted, T2-weighted, and and T2 fat-sat images were acquired. COMPARISON: 09/04/2023 Findings: There is no fracture or subluxation of lumbar spine. Vertebral bodies maintain normal heigh t and alignment. Stable osseous alignment from prior exam. No bone marrow signal abnormality seen. At L1-L2, there is no significant disc bulge or herniation. No spinal canal stenosis or neural forami nal narrowing. At L2-L3, there is no disc bulge or herniation. No spinal canal stenosis or neural foraminal narrowin g. At L3-L4, there is no significant disc bulge or herniation. There is mild facet hypertrophy. No spina l canal stenosis. There is minimal left neural foraminal narrowing. Right neural foramen preserved. At L4-L5, there is mild disc bulge with severe facet arthropathy. No karen central canal stenosis. Th ere is moderate bilateral neural foraminal narrowing. At L5-S1, there is no disc bulge or herniation. There is advanced facet arthropathy. No central canal stenosis. There is mild to moderate left neural foraminal narrowing, and mild right neural foraminal narrowing. Paravertebral soft tissues are unremarkable. Impression: [id number] degenerative spondylosis at the lower lumbar spine, as detailed above. Reviewed, dictated and finalized at [facility]. Impression: [id number] degenerative spondylosis at the lower lumbar spine, as detaile d above.
--- OUTSIDE RECORDS SUMMARY | 2024-09-09 11:12 | XMS_ITS | Referral Summary ---
Author Organization [facility] Address [address] [place] [address] Care Team Providers Care Sales Order Specialist Name Role Phone Chichi Deleon NP Primary Care Provider [phone] Allergies Active Allergy Reactions Criticality Noted Date Comments Codeine Rash Medium 07/14/2021 Sulfa (Sulfonamide Antibiotics) Rash Medium 050 09/[address] (VOLTAREN) 50 mg EC tablet Take 1 tablet (50 mg total) by mouth 2 (two) times a day Active folic acid (FOLVITE) 1 mg tablet TAKE 1 TABLET BY MOUTH EVERY DAY BEFORE A MEAL 3 Active levothyroxine (SYNTHROID) 100 mcg tablet Take 1 tablet (100 mcg total) by mouth daily Active omeprazole (PriLOSEC) 20 mg capsule Take 1 capsule (20 mg total) by mouth 2 (two) times a day Active BD Tuberculin Syringe 1 mL 27 x 1/2 syringe USE WITH METHOTREXATE DIRECTED 3 Active latanoprost (XALATAN) 0.005 % ophthalmic solution INSTILL 1 DROP BY OPHTHALMIC ROUTE EVERY DAY BOTH EYES AT BEDTIME 2 Active fluticasone propionate (FLONASE) 50 mcg/actuation nasal spray 3 Active clobetasoL (TEMOVATE) 0.05 % external solution APPLY TO ITCHY INFLAMED AREAS ON SCALP. 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 Social History Tobacco Use Types Packs/Day Years Used Date Smoking Tobacco: Never Passive Smoke Exposure: Never Smokeless Tobacco: Never Tobacco Cessation:Counseling Given: Not Answered Personal Safety Answer Date Recorded Getting School Help Needed Not on file 05/04 Comments No Sex and Gender Information Value Date Recorded Sex Assigned at Not on file Legal Sex Female 2:10 PM DIRECTOR SPECIAL EDUCATION Gender Identity Not on file Sexual Orientation Not on file Last Filed Vital Signs Vital Sign Reading Time Taken Comments Blood Pressure 116/68 11/08/2022 7:02 PM CDT Pulse 83 11/08/2022 7:02 PM CDT Temperature 36.8 C (98.2 F) 11/08/2022 7:02 PM CDT Respiratory Rate 20 11/08/2022 7:02 PM CDT Oxygen Saturation 97% 11/08/2022 7:02 PM CDT Inhaled Oxygen Concentration - - Weight 79.4 kg (175 lb) 11/08/2022 7:02 PM CDT Height 160 cm (5' 3) 11/08/2022 7:02 PM CDT Body Mass Index 31 11/08/2022 7:02 PM CDT Plan of Treatment Not on file Insurance MEDICARE [employer] GENERIC MEDICARE COMMERCIAL GENERIC MEDICARE COMMERCIAL GENERIC Care Teams Sales Order Specialist Relationship Specialty Start Date End Date Chichi Deleon NP [address] [place] [address] PCP - General Nurse Practitioner 11/22/22
--- OUTSIDE RECORDS SUMMARY | 2024-09-09 11:12 | XMS_ITS | Clinical Summary ---
Author Organization [facility] Address [address] [place] [address] Phone Care Team Providers Care Bow Maker Production Name Role Phone Chichi Deleon OPTIMIZATION ANALYST, MANUFACTURE SPECIALIST Primary Care Provi alpa Allergies Active Allergy Reactions Criticality Noted Date Comments Codeine Rash 07/14/2021 Sulfa Antibiotics Rash 07/14/2021 Medications diclofenac (VOLTAREN) 50 MG Tablet Delayed Response TAKE 1 TABLET ORALLY 3 TIMES A DAY TAKE NEEDED FOR PAIN 06/28/2021 Active hydrocortisone 2.5 % Cream APPLY TO INFLAMED SKIN OF FACE TWICE DAILY OR DELICATE SKIN WHEN NEEDED. 04/29/2021 Active levothyroxine (SYNTHROID) 100 MCG Tablet Take 100 mcg by mouth daily. 06/02/2021 Active omeprazole (PriLOSEC) 20 MG CAPSULE DELAYED RELEASE 07/11/2021 Act harry Active Problems No known active problems Social History Tobacco Use Types Packs/Day Years Used Date Smoking Tobacco: Never Smokeless Tobacco: Never Alcohol Use Standard Drinks/Week Comments Not Currently 0 (1 standard drink = 0.6 oz pur e alcohol) Comments Unknown Sex and Gender Information Value Date Recorded Sex Assigned at Not on file Legal Sex Female 7:05 PM CDT Gender Identity Not on file Sexual Orientation Not on file Last Filed Vital Signs Vital Sign Reading Time Taken Comments Blood Pressure 154/72 07/14/2021 4:33 PM CDT Pulse 89 07/14/2021 4:33 PM CDT Temperature 37.5 C (99.5 F) 07/14/2021 4:33 PM CDT Respiratory Rate 20 07/14/2021 4:33 PM CDT Oxygen Saturation 96% 07/14/2021 4:33 PM CDT Inhaled Oxygen Concentration - - Weight - - Height - - Body Mass Index - - Plan of Treatment Health Maintenance Due Date Last Done Comments TdaP Immunization 1950 Cologuard 07/06/1995 Colonoscopy 07/06/1995 Colorectal Cancer Screening 07/06/1995 Immunochemical Fecal Occult Blood 07/06/1995 Pneumococcal Immunization (5 0+ years) (1 of 1 - PCV) 2000 Zoster Immunization (1 of 2) 2000 SARS-COV-2 Immunization (1 - 2023- season) 2023 Influenza Immunization (Seas on Ended) 2024 Respiratory Syncytial Virus (RSV) Immunization (Adult) (1 - 1-dose 75+ series) 2025 Hepatitis C Virus (HCV) Screening Completed 021 Hepatitis B Immunization Aged Out No longer eligible based on patient's age to complete this topic Human Papillomavirus (HPV) Immunization Aged Out No longer eligible b ased on patient's age to complete this topic Meningococcal Immunization (ACWY) Aged Out No longer eligible based on patient's age to complete this topic Rotavirus Immunization Aged Out No lo nger eligible based on patient's age to complete this topic Insurance MEDICARE COMMERCIAL GENERIC Care Teams Bow Maker Production Relationship Specialty Start Date End Date Chichi Deleon, OPTIMIZATION ANALYST, MANUFACTURE SPECIALIST [address] [place] [address] PCP - General Advanced Practice Nurse 07/14/21
--- OUTSIDE RECORDS SUMMARY | 2024-09-09 11:13 | XMS_ITS | Continuity of Care Document ---
Author Organization [employer] Eye [facility] Address [address] Sw[address]z [address] [place] [phone] Phone Care Team Providers Care Stucco Laborer Name Role Phone Maximo OD, Angelique Unavailable Unavailable Allergies, Adverse Reactions, Alerts Substance Reaction Status Criticality codeine Active No Information Sulfa (Sulfonamide Antibiotics) Active No Information Medications Medication Instructions Dosage Effective Dates (start - stop) Status Comments LATANOPROST 0.005% EYE DROPS INSTILL 1 DROP BY OPHTHALMIC ROUTE EVERY DAY BOTH EYES AT BEDTIME - Active Miebo (PF) 100 % eye drops instill 1 drop by ophthalmic route 4 times every day into affected eye(s) 1.00 drop - Active methotrexate sodium 2.5 mg tablet take 1 tablet by oral route every week 2.5 MG - Active leflunomide 20 mg tablet take 1 tablet by oral route every day 20 MG - Active Vitamin C 1,000 mg tablet take 1 by oral route every day 1 - Active aspirin 81 mg tablet,delayed release take 1 tablet by oral route every day 81 MG - Active omeprazole 20 mg capsule,delayed release take 1 capsule by oral route every day 30 minutes to 1 hour before a meal 20 MG - Active diclofenac sodium 50 mg tablet,delayed release take 1 tablet by oral route 2 times every day 50 MG - Active Tirosint 100 mcg capsule take 1 capsule by oral route every day 100 MCG - Active LATANOPROST 0.005% EYE DROPS INSTILL 1 DROP BY OPHTHALMIC ROUTE EVERY DAY BOTH EYES AT BEDTIME - No Longer Active Procedures Procedure Date No Charge Optomap Fundus Photos 025 No Charge Refraction SCODI, Posterior Segment Visual Field Examination(s) Office/outpatient Visit, Est Fundus Photography W/ Report Office/outpatient Visit, Est SCODI, Posterior Segment No Charge Optomap Fundus Photos 024 No Charge Refraction Visual Field Examination(s) Office/outpatient Visit, Est No Charge Optomap Fundus Photos 023 SCODI, Posterior Segment Eye Exam & Treatment SCODI, Retina Oct- Visual Field Examination(s) No Charge Optomap Fundus Photos Dec-01-09 022 No Charge Refraction Office/outpatient Visit, Est Dec- Visual Field Examination(s) No Charge Optomap Fundus Photos 022 SCODI, Posterior Segment Eye Exam & Treatment Fundus Photography W/ Report Visual Field Examination(s) Office/outpatient Visit, Est Visual Field Examination(s) No Charge Optomap Fundus Photos 020 SCODI, Posterior Segment Corneal Pachymetry Oct Eye Exam, New Patient Advance Directives Directive Yes / No Effective Date File Name No Information Encounters Encounter Description Practice Location Reason(s) For Visit Diagnoses Date Provider Providers Copied on Encounter [facility], [email or web address], [place], [place], [address], [place] tel:[phone] SEC Cl NAQVI Professional No Information 5 Maximo OD Angelique. [employer] [address], [address], [place], [place], [address], [place]. tel:[phone] Office/outpa tient Visit, Est [facility], [email or web address], [place], [place], [address], [place] tel:[phone] SEC Cl NAQVI Professional Complete Exam (chief complaint) Primary open-angle glaucoma, bilateral, mild stageDry eyes, bilateral May-0 6-202 5 Maximo OD Angelique. [id number] [place] [address] [address], [address], [place], [place], [address], [place]. tel:[phone] Elaine Pinon.R eferring Provider: Oli Randle, [address], [place], [address]. tel:[phone] [facility], [address], [place], [place], [address], [place] tel:[phone] [place] No Information Apr- 8-202 5 Maximo OD Angelique. [address] [place] [address] [address], [address], [place], [place], [address], [place]. tel:[phone] Office/outpa tient Visit, [facility], [address] [place] [address] [address], [place], [place], [address], [place] tel:[phone] SEC Cl NAQVI Professional 6 week Glaucoma Follow Up (chief complaint) Primary open-angle glaucoma, bilateral, mild stage Apr-1 5-202 4 Maximo OD Angelique. [address] [place] [address] [address], [address], [place], [place], [address], [place]. tel:[phone] Specialist: Elaine Pinon, [address] [facility] [address], [place], [address]. tel:[phone] ring Provider: Oli Randle, [address], [place], [address]. tel:[phone] Office/outpa tient Visit, [facility], [address], [place], [place], [address], [place] tel:[phone] SEC Cl NAQVI Professional Complete Exam (chief complaint) Primary open-angle glaucoma, bilateral, mild stageAge-rela haja nuclear cataract, bilateral May-0 -202 4 Maximo OD Angelique. [address] [place] [address] [address], [address], [place], [place], [address], [place]. tel:[phone] Referring Provider: Oli Randle, [address] [facility] [address], [place], [address]. tel:[phone] [facility], [address] [place] [address] [address], [place], [place], [address], [place] tel:[phone] SEC Cl [place] Professional Complete Exam (chief complaint) Scotoma of blind spot area of right eyePrimary open-angle glaucoma, bilateral, mild stageAge-rela haja nuclear cataract, bilateral Oct-03 15- 3 Maximo OD Angelique. [address] [place] [address] [address], [address], [place], [place], [address], [place]. tel:[phone] Referring Provider: Oli Randle, [address] [facility] [address], [place], [address]. tel:[phone] Office/outpa tient Visit, [facility], [address] [place] [address] [address], [place], [place], [address], [place] tel:[phone] SEC Cl [place] Professional IOP (chief complaint) Age-related nuclear cataract, bilateralPrim marybeth open-angle glaucoma, bilateral, mild stageScotoma of blind spot area of right eye Oct-1 2 Rashaun Baird. [address] [facility], [address], [place], [place], [address], [place]. tel:[phone] Referring Provider: Oli Randle, [address] [facility] [address], [place], [address]. tel:[phone] [facility], [address], [place], [place], [address], [place] tel: MECHELLE NAQVI Professional Complete Exam (chief complaint) Primary open-angle glaucoma, bilateral, mild stageAge-rela haja nuclear cataract, bilateral Apr-1 2 Rashaun Baird. [address], [address], [place], [place], [address], [place]. tel:[phone] Referring Provider: Oli Randle, [address], [place], [address]. tel: Office/outpa tient Visit, [facility], [address] [place] [address] [address], [place], [place], [address], [place] tel: MECHELLE NAQVI Professional 6 month IOP check w/VF (chief complaint) Primary open-angle glaucoma, bilateral, mild stage Apr- 1 Rashaun Baird. [address], [address], [place], [place], [address], [place]. tel:[phone] Referring Provider: Oli Randle, [address], [place], [address]. tel: [facility], [address], [place], [place], [address], [place] tel: MECHELLE NAQVI Professional GROCERY STOCK CLERK Complete Exam (chief complaint) Age-related nuclear cataract, bilateralPrim marybeth open-angle glaucoma, bilateral, mild stage Oct-0 0 Rashaun Baird. [address], [address], [place], [place], [address], [place]. tel:[phone] Referring Provider: Oli Randle, [address], [place], [address]. tel: [facility], [address], [place], [place], [address], [place] tel: MECHELLE NAQVI Professional No Information Sep-2 0 Rashaun Baird. [address] [facility] [address], [address], [place], [place], [address], [place]. tel:[phone] Family History Family Member Type Diagnosis Age At Onset No Information Payers Payer name Insurance type Covered republican ID Authorelisabeth hudson(s) Medicare DRISS FRANCO [id number] [facility] Life CI [id number] Social History Type Description Quantity Date Captured Comments Sex Female Smoking Status No Information Chief Complaint And Reason For Visit No Information Reason For Referral Reason For Referral No Information Plan Of Treatment Date Type Action Status Appointment Lisa Navarro BOOKED Patient Education The Eye: Anatomy Sketch completed Patient Education Cataracts: Care Instruc tions completed Patient Education Open-Angle Glaucoma: Ca re Instructions completed Patient Education Open-Angle Glaucoma: Ca re Instructions completed History Of Present Illness Encounter Date Complaint History Of Prese nt Illness Complete Exam The 74 year old patient presents for a complete POAG ou IOP check. Patient is using Latanoprost qhs OD and 3x a week OS. Patient c/o a film on her eyes when she is reading. 6 week Glaucoma Follow Up The 72 year old patient presents for evaluation of 6 week Glaucoma Follow Up in the right eye and left eye. Pt states no changes to vision since last visit. Pt did begin taking Leflunomide for her RA since last visit, pt followed by Elaine Pinon NP. Pt using Latanoprost qHS OD, 3x a week OS. Complete Exam The 72 year old patient presents for evaluation of Complete Exam in the right eye and left eye. Pt states that starting about 6 months ago they noticed that in OS there a white spot on the corner that can never seem to go away. Pt is taking Latanoprost QHS OD, and 3 times a week in OS. Complete Exam The 72 year old patient presents for evaluation of Complete Exam in the right eye and left eye. Pt says vision is good but later in the day pt says vision gets worse. Pt is still taking Latanoprost OU QHS. Pt does notice floaters every so often in OU but mostly in OS. IOP The 71 year old patient presents for evaluation of IOP in the right eye and left eye. Pt using Latanoprost OD qhs, and OS M,W,F. Pt states Ou vision is clear and stable at distance and near x 6 mos. Complete Exam The 70 year old patient presents for evaluation of Complete Exam in the right eye and left eye. Hx of POAG OU and mild Cataracts OU. Patient denies any problems or changes with eyes. Patient using Marcy (M,W,F) in left eyes and everyday in the right eye. 6 month IOP check w/VF The 69 ye ar old female presents for evaluation of 6 month IOP check w/VF in the right eye and left eye. Hx of POAG OU and Cataracts OU. Patient denies any problems or changes with eyes. Patient using Marcy qd OD and 3 times a day only in the left eye last used @ 2am. GROCERY STOCK CLERK Complete Exam The 69 year old female presents for evaluation of GROCERY STOCK CLERK Complete Exam in the right eye and left eye. Hx Glaucoma OU. Pt reports moving here about 1 year ago and needs to find someone to manage her Glaucoma. Her last Dr. was at [facility] in [place], [place]. Pt reports stable vision in current spec Rx. Pt reports taking Latanoprost qHS OU (3:00am this morning). Functional Status Date Functional Assessmen t No Information Instructions Date Instruction Additional Infor dipak Impression/Plan Impression/Plan Impression/Plan Impression/Plan Impression/Plan Impression/Plan Impression/Plan Impression/Plan Assessments Type Assessment Date No Information Patient Care Teams Name Effective Dates (start - stop) Status Members No Information
--- OUTSIDE RECORDS SUMMARY | 2024-09-09 11:13 | XMS_ITS | Patient Health Record ---
Author Organization [facility], Address [address] [place] [address] Support Name Relationship Address Phone ERNIE JAM Guarantor Unknown [phone] Reason For Referral No Information Medications Medication SIG (Take, Route, Frequency, Duration) Notes Start Date End Date Status Triamterene-HCTZ 37.5-25 mg once a day oral *please review for potential update for e-prescription and drug interaction check* Active Omeprazole 20 MG once a day Oral Active Diclofenac Sodium 50 MG once a day Oral Active Metaxalone 800 MG once a day Oral Active Estradiol 0.05 mg/24 hr once a week Transdermal *please review for potential update for e-prescription and drug interaction check* Active Levothyroxine Sodium 112 mcg once a day oral *please review for potential update for e-prescription and drug interaction check* Active CALCIUM MAGNESIUM + D unspecified once a day *please review for potential update for e-prescription and drug interaction check* Active Vitamin D3 2000 UNIT once a day Oral *please rev iew for potential update for e-prescription and drug interaction check* Active Problems Problem Type SNOMED Code ICD Code Onset Dates Problem Status W/U Status Risk Notes 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
--- OUTSIDE RECORDS SUMMARY | 2024-09-09 11:13 | XMS_ITS | Clinical Summary ---
Author Organization [facility] Address [address] [place] [address] Care Team Providers Care Certified Pharmacy Technician Name Role Phone Chichi Deleon NP Primary Care Provider [phone] Allergies Active Allergy Reactions Criticality Noted Date Comments Codeine Rash Medium 07/14/2021 Sulfa (Sulfonamide Antibiotics) Rash Medium 09/[address] (VOLTAREN) 50 mg [...] tinnitus 04/28/2014 Vertigo of central origin 04/28/2014 Medical History Medical History Date Comments Thyroid disease 08/2004 Tinnitus 1993 GERD (gastroesophageal reflux disease) 2019 Ear problems Autoimmune disease Family History Medical History Relation Name Comments Heart failure Father James Tyson Hypertension Father James Tyson Heart failure Mother Flori Tyson Migraines Mother Flori Tyson Osteoarthritis Mother Flori Tyson Autoimmune disease Sister Mega Man Cancer Sister Mega Man Relation Name Status Comments Father James Tyson Mother Flori Tyson Sister Mega Man Social History Tobacco Use Types Packs/Day Years Used Date Smoking Tobacco: Never Passive Smoke Exposure: Never Smokeless Tobacco: Never Tobacco Cessation:Counseling Given: Not Answered Personal Safety Answer Date Recorded Getting School Help Needed Not on file 05/04 Comments No Sex and Gender Information Value Date Recorded Sex Assigned at Not on file 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 Gender Identity Not on file Sexual Orientation Not on file Obstetrics History Last Filed Vital Signs Vital Sign Reading [...] 11/08/2022 7:02 PM CDT Plan of Treatment Health Maintenance Due Date Last Done Comments Breast Cancer Screening-Mammogram 1950 Colon Cancer Screening-Colonoscopy 1950 Depression Screening 1950 Fall Risk Assessment 1950 Hepatitis C Screening 1950 Osteoporosis Screening-Bone Density Scan 1950 DTaP/Tdap/Td Vaccine (1 - Tdap) 1961 Hepatitis B Screening 1968 Pneumococcal vaccine 65+ (1 of 1 - PCV) 2000 Zoster Vaccine (1 of 2) 2000 Well Visit 65+ 07/06/2015 Influenza Vaccine (#1) 2024 Insurance MEDICARE COMMERCIAL GENERIC MEDICARE COMMERCIAL GENERIC MEDICARE [facility] Address: [address] [address] [place] [address] COMMERCIAL GENERIC Care Teams Certified Pharmacy Technician Relationship Specialty Start Date End Date Chichi Deleon NP [address] [place] [address] PCP - General Nurse Practitioner 11/22/22
== END 2024-09-09 11:11 | disposition home or self-care (01) ==
PROVIDERS: PCP Nurse Practitioner Family; Visit Provider Nurse Practitioner Family
DX: M54.16 Radiculopathy, lumbar region (principal); M43.06 Spondylolysis, lumbar region
CPT/HCPCS: 72148